=== PATIENT | female | born 1995 | race Caucasian/White ===

== ENCOUNTER 2018-03-23 12:14 | Emergency (ER) | payer BC ==
[2018-03-23 13:55] LABS: Absolute Lymphocytes (CBC) 1.3 K/uL (0.7-4.9); Absolute Monocytes 0.5 K/uL (0.1-1.3); Absolute Neutrophil 4.3 K/uL (1.8-8.0); Basophils % 0.1 % (0-1.3); Hematocrit 46.1 % (36.0-45.0); Lymphocytes % 20.8 % (15.3-44.8); MCH 29.6 pg (27.0-35.0); MCV 88.5 fL (80-100); MPV 8.2 fL (7.6-11.3); Monocytes % 7.3 % (3.3-12.3); RBC Red Blood Cell Count 5.21 M/uL (3.86-4.86)
[2018-03-23 14:03] LABS: Barbiturates NEGATIVE (NEGATIVE); Benzodiazepines NEGATIVE (NEGATIVE); Cocaine NEGATIVE (NEGATIVE); METHAMPHETAM NEGATIVE (NEGATIVE); Methadone NEGATIVE (NEGATIVE); Opiates NEGATIVE (NEGATIVE); Phencyclidine NEGATIVE (NEGATIVE); THC Cannibis NEGATIVE (NEGATIVE)
--- NOTE | 2018-03-23 14:07 | RAD REPORT ---
EXAM DESCRIPTION: RAD - Chest Pa And Lat (2 Views) - 03/23/2018 2:01 pm CLINICAL HISTORY: CHEST PAIN Chest pain. COMPARISON: Chest Pa And Lat (2 Views) dated 05/11/2016 FINDINGS: The lungs are clear. The heart is normal in size. No displaced fractures. IMPRESSION: No acute or concerning finding suspected.
[2018-03-23 14:19] LABS: BUN Blood Urea Nitrogen 12 mg/dL (7-18); Bicarbonate 29 mmol/L (21-32); Glucose Level 101 mg/dL (74-106); Potassium 3.8 mmol/L (3.5-5.1); Sodium Level 140 mmol/L (136-145)
[2018-03-23 14:39] LABS: Blood Morphology Comment NOT SEEN (NOT SEEN); Platelet Estimate ADEQ; Urine White Blood Cell Casts DIFF
--- NOTE | 2018-03-23 14:49 | ER ---
Nurse's Notes [facility] Name: Paula Alford Age: 22 yrs Sex: Female : 1995 Arrival Date: 03/23/2018 Time: 12:16 Bed 24 Private MD: Diagnosis: Tremor, unspecified Presentation: 03/23 13:05 Presenting complaint: Patient states: has had trembling/shakiness in her hands all iw week, was worse today, and then today has had pain across chest that feels sharp when she takes a deep breath or coughs, also has back pain. Transition of care: patient was not received from another setting of care. Onset of symptoms was March 17, 2018. Risk Assessment: Do you want to hurt yourself or someone else? Patient reports no desire to harm self or others. Initial Sepsis Screen: Does the patient meet any 2 criteria? No. Patient's initial sepsis screen is negative. Does the patient have a suspected source of infection? No. Patient's initial sepsis screen is negative. Care prior to arrival: None. 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 - Social history:: Smoking status: Patient uses tobacco products, smokes one-half pack cigarettes per day. - Ebola Screening: : Patient negative for fever greater than or equal to 101.5 degrees Fahrenheit, and additional compatible Ebola Virus Disease symptoms Patient denies exposure to infectious person Patient denies travel to an Ebola-affected area in the 21 days before illness onset No symptoms or risks identified at this time. Screenin:21 Abuse screen: Denies threats or abuse. Nutritional screening: No deficits noted. mb3 Tuberculosis screening: No symptoms or risk factors identified. Fall Risk None identified. Assessment: 14:40 General: Appears in no apparent distress. comfortable, Behavior is calm, cooperative, mb3 appropriate for age. Pain: Complains of pain in diaphragm. Neuro: Level of Consciousness is awake, alert, obeys commands, Oriented to person, place, time, situation, Appropriate for age Property Inspector are equal bilaterally Moves all extremities. Full function Gait is steady, Speech is normal, Reports shakiness, tremors to arms and hands. Cardiovascular: No deficits noted. Cardiovascular: Heart tones S1 S2 present Capillary refill < 3 seconds Patient's skin is warm and dry. Pulses are all present. Respiratory: No deficits noted. Respiratory: Airway is patent Respiratory effort is even, unlabored, Respiratory pattern is regular, symmetrical, Breath sounds are clear bilaterally. GI: No deficits noted. : No signs and/or symptoms were reported regarding the genitourinary system. EENT: No signs and/or symptoms were reported regarding the EENT system. Derm: No signs and/or symptoms reported regarding the dermatologic system. Musculoskeletal: No signs and/or symptoms reported regarding the musculoskeletal system. Vital Signs: 13:07 BP 148 / 109; Pulse 78; Resp 16; Temp 98.2; Pulse Ox 98% on R/A; Weight 106.59 kg; iw Height 5 ft. 8 in. (172.72 cm); Pain 6/10; 14:42 BP 139 / 94; Pulse 80; Resp 16; Pulse Ox 100% on R/A; mb3 13:07 Body Mass Index 35.73 (106.59 kg, 172.72 cm) iw ED Course: 12:16 Patient arrived in ED. as 12:59 Dakota Valdovinos, ROSALIND is Primary Nurse. mb3 13:01 Mae Lopez, [facility]C [facility]. snw 13:01 Leandro Kraft MD is Attending Physician. snw 13:07 Triage completed. iw 13:07 Arm band placed on. iw 13:29 EKG done, by imaging technician. reviewed by Mae FISH. at1 13:53 X-ray completed. Patient tolerated procedure well. Patient moved back from radiology. jb2 14:01 Chest Pa And Lat (2 Views) XRAY In Process Unspecified. EDMS 15:22 No provider procedures requiring assistance completed. Patient did not have IV access mb3 during this emergency room visit. 15:23 Patient has correct armband on for positive identification. mb3 Administered Medications: 15:08 Not Given (Duplicate Order): TORadol 30 mg IVP once mb3 15:08 Drug: TORadol 60 mg Route: IM; Site: right gluteus; mb3 15:21 Follow up: Response: No adverse reaction mb3 Outcome: 14:48 Discharge ordered by MD. alvarado 15:22 Discharged to home ambulatory. mb3 15:22 Condition: stable 15:22 Discharge instructions given to patient, Instructed on discharge instructions, follow up and referral plans. Demonstrated understanding of instructions, follow-up care. 15:23 Patient left the ED. mb3 Signatures: Dispatcher [employer] EDMS Mae Lopez, RETAIL MANAGEMENT KEYHOLDER-C RETAIL MANAGEMENT KEYHOLDER-Csnw Ruel Leslie Amelia as Williams, Irene, RN RN iw Makenzie cuevas, septic tank service technician EKG Tat1 Dakota Valdovinos, RN RN mb3
--- NOTE | 2018-03-23 14:49 | EDPHYS ---
Physician Documentation [facility] Name: Paula Alford Age: 22 yrs Sex: Female : 1995 Arrival Date: 03/23/2018 Time: 12:16 Bed 24 Private MD: ED Physician Leandro Kraft HPI: 03/23 13:46 This 22 yrs old Female presents to ER via Ambulatory with complaints of Rib snw Pain, Feels "shaky". 13:46 Onset: The symptoms/episode began/occurred suddenly, 1 week(s) ago. Associated signs snw and symptoms: The patient has no apparent associated signs or symptoms. It is unknown whether or not the patient has had similar symptoms in the past. It is unknown whether or not the patient has recently seen a physician. family hx of HTN, all pt's readings in ED elevated. No known hx of familial thyroid problems. 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 - Social history:: Smoking status: Patient uses tobacco products, smokes one-half pack cigarettes per day. - Ebola Screening: : Patient negative for fever greater than or equal to 101.5 degrees Fahrenheit, and additional compatible Ebola Virus Disease symptoms Patient denies exposure to infectious person Patient denies travel to an Ebola-affected area in the 21 days before illness onset No symptoms or risks identified at this time. ROS: 13:46 Constitutional: Negative for fever, chills, and weight loss, Eyes: Negative for injury, snw pain, redness, and discharge, ENT: Negative for injury, pain, and discharge, Neck: Negative for injury, pain, and swelling, Respiratory: Negative for shortness of breath, cough, wheezing, and pleuritic chest pain, Abdomen/GI: Negative for abdominal pain, nausea, vomiting, diarrhea, and constipation, Back: Negative for injury and pain, : Negative for injury, bleeding, discharge, and swelling, MS/Extremity: Negative for injury and deformity, + for shaking hands bilaterally Skin: Negative for injury, rash, and discoloration, Neuro: Negative for headache, weakness, numbness, tingling, and seizure. 13:46 Cardiovascular: Positive for chest pain. Exam: 13:44 Head/Face: Normocephalic, atraumatic. Eyes: Pupils equal round and reactive to light, snw extra-ocular motions intact. Lids and lashes normal. Conjunctiva and sclera are non-icteric and not injected. Cornea within normal limits. Periorbital areas with no swelling, redness, or edema. ENT: Nares patent. No nasal discharge, no septal abnormalities noted. Tympanic membranes are normal and external auditory canals are clear. Oropharynx with no redness, swelling, or masses, exudates, or evidence of obstruction, uvula midline. Mucous membranes moist. Neck: Trachea midline, no thyromegaly or masses palpated, and no cervical lymphadenopathy. Supple, full range of motion without nuchal rigidity, or vertebral point tenderness. No Meningismus. Chest/axilla: Normal chest wall appearance and motion. Nontender with no deformity. No lesions are appreciated. Cardiovascular: Regular rate and rhythm with a normal S1 and S2. No gallops, murmurs, or rubs. Normal PMI, no JVD. No pulse deficits. Respiratory: Lungs have equal breath sounds bilaterally, clear to auscultation and percussion. No rales, rhonchi or wheezes noted. No increased work of breathing, no retractions or nasal flaring. Abdomen/GI: Soft, non-tender, with normal bowel sounds. No distension or tympany. No guarding or rebound. No evidence of tenderness throughout. Back: No spinal tenderness. No costovertebral tenderness. Full range of motion. Skin: Warm, dry with normal turgor. Normal color with no rashes, no lesions, and no evidence of cellulitis. Neuro: Awake and alert, GCS 15, oriented to person, place, time, and situation. Cranial nerves II-XII grossly intact. Motor strength 5/5 in all extremities. Sensory grossly intact. Cerebellar exam normal. Normal gait. Psych: Awake, alert, with orientation to person, place and time. Behavior, mood, and affect are within normal limits. 13:44 Constitutional: The patient appears alert, awake, obese. 13:44 Musculoskeletal/extremity: Extremities: all appear grossly normal, with no appreciated pain with palpation, + fine tremor, ROM: no acute changes, Circulation is intact in all extremities. Sensation intact. Vital Signs: 13:07 BP 148 / 109; Pulse 78; Resp 16; Temp 98.2; Pulse Ox 98% on R/A; Weight 106.59 kg; iw Height 5 ft. 8 in. (172.72 cm); Pain 6/10; 14:42 BP 139 / 94; Pulse 80; Resp 16; Pulse Ox 100% on R/A; mb3 13:07 Body Mass Index 35.73 (106.59 kg, 172.72 cm) iw MDM: 13:11 Patient medically screened. swapna 14:50 Data reviewed: vital signs, nurses notes. Data interpreted: Pulse oximetry: on room air snw is 100 %. Interpretation: normal. Counseling: I had a detailed discussion with the patient and/or guardian regarding: the historical points, exam findings, and any diagnostic results supporting the discharge/admit diagnosis. Response to treatment: There is no appreciated change of the patient's symptoms at this time. 03/23 13:12 Order name: Urine Microscopic Only [facility] 03/23 13:13 Order name: UDS; Complete Time: 14:12 snw 03/23 13:21 Order name: CBC with Diff; Complete Time: 14:45 snw 03/23 13:21 Order name: Chem 7; Complete Time: 14:22 snw 03/23 13:21 Order name: TSH; Complete Time: 14:22 snw 03/23 13:58 Order name: Urine Dipstick--Ancillary (enter results) 03/23 13:12 Order name: Chest Pa And Lat (2 Views) XRAY; Complete Time: 14:12 snw 03/23 13:12 Order name: Urine Test (obtain specimen); Complete Time: 13:42 snw 03/23 13:13 Order name: EKG; Complete Time: 13:13 snw 03/23 13:58 Order name: Urine --Ancillary (enter results) 03/23 14:00 Order name: CBC Smear Scan EDNY 03/23 14:39 Order name: Manual Differential; Complete Time: 14:45 EDNY 03/23 13:12 Order name: Urine Dipstick-Ancillary (obtain specimen); Complete Time: 13:42 snw 03/23 13:13 Order name: EKG - Nurse/Tech; Complete Time: 14:53 snw Administered Medications: 15:08 Not Given (Duplicate Order): TORadol 30 mg IVP once mb3 15:08 Drug: TORadol 60 mg Route: IM; Site: right gluteus; mb3 15:21 Follow up: Response: No adverse reaction mb3 Disposition: 03/23/18 14:48 Discharged to Home. Impression: Tremor, unspecified. - Condition is Stable. - Discharge Instructions: Cooking with Less Salt, Hypertension, Tremor, Rehydration, Adult. - Work release form, Medication Reconciliation Form, Thank You Letter, Antibiotic Education, Prescription Opioid Use form. - Follow up: Private Physician; When: 2 - 3 days; Reason: Recheck today's complaints, Continuance of care, Re-evaluation by your physician. Follow up: Emergency Department; When: As needed; Reason: Worsening of condition. Addendum: 03/26/2018 10:08 Co-signature as Attending Physician, Leandro Kraft MD I agree with the assessment and c byrne plan of care. Signatures: Dispatcher [employer] EDNY Leandro Kraft MD MD cha Therrien, Shelly, VENEER JOINTER OPERATOR-C VENEER JOINTER OPERATOR-Csnw Neli Cross, RN RN Dakota Carey RN RN mb3 Corrections: (The following items were deleted from the chart) 03/23 15:23 14:48 03/23/2018 14:48 Discharged to Home. Impression: Tremor, unspecified. Condition mb3 is Stable. Forms are Medication Reconciliation Form, Thank You Letter, Antibiotic Education, Prescription Opioid Use. Follow up: Private Physician; When: 2 - 3 days; Reason: Recheck today's complaints, Continuance of care, Re-evaluation by your physician. Follow up: Emergency Department; When: As needed; Reason: Worsening of condition. snw
[2018-03-23] MEDS ORDERED: KETOROLAC 30 MG/ML INJ ONE ×2 (15:05→15:07)
[2018-03-23 15:19] LABS: Urine Bacteria <20 /HPF (<20); Urine Culture Reflex Order NOT NEEDED; Urine Mucus 1+ /HPF (NONE SEEN); Urine RBC <5 /HPF (NONE SEEN)
[2018-03-23 15:49] LABS: Urine Blood NEGATIVE (NEG); Urine Glucose NEGATIVE (NEG); Urine Protein NEGATIVE (NEG)
--- NOTE | 2018-03-23 18:08 | EKG ---
Test Date: 2018-03-23 Test Time: 13:24:02 Baker Helper: DEJUAN MEASUREMENT RESULTS: Intervals: Rate: 71 OK: 130 QRSD: 84 QT: 394 QTc: 428 [place]: P: 43 OK: 130 QRS: 32 T: 18 INTERPRETIVE STATEMENTS: Normal sinus rhythm with sinus arrhythmia Normal ECG Compared to ECG 05/11/2016 01:35:48 No significant changes Electronically Signed On 03-23-18 18:06:35 CDT by Ortiz Garcia
== END 2018-03-23 15:23 | disposition home or self-care (01) ==
LOC: ER 12:14
DX: R25.1 Tremor, unspecified (principal)
CPT/HCPCS: 36415; 71046; 80048; 80307; 81003; 81015; 81025; 84443; 85025; 93005; 96372; 99283

== ENCOUNTER 2021-05-05 10:25 | Emergency (ER) | payer BC ==
--- NOTE | 2021-05-05 11:16 | RAD REPORT ---
EXAM DESCRIPTION: Jovon Single View05/05/2021 11:10 am CLINICAL HISTORY: Cough COMPARISON: 2017 FINDINGS: The lungs appear clear of acute infiltrate. The heart is normal size IMPRESSION: No acute abnormalities displayed
--- NOTE | 2021-05-05 12:23 | ER ---
Nurse's Notes [facility] Name: Paula Alford Age: 25 yrs Sex: Female : 1995 Arrival Date: 05/05/2021 Time: 10:26 Bed Treatment Private MD: Diagnosis: Dyspnea Presentation: 05/05 10:30 Chief complaint: Patient states: started feeling bad 2 days ago, but shortness of tw2 breath started this morning. Coronavirus screen: cough unrelated to allergies, difficulty breathing, fever, shaking with chills, Client presents with at least one sign or symptom that may indicate coronavirus-19. Standard/surgical mask placed on the client. Provider contacted for isolation considerations. Ebola Screen: Patient denies travel to an Ebola-affected area in the 21 days before illness onset. Initial Sepsis Screen: Does the patient meet any 2 criteria? No. Patient's initial sepsis screen is negative. Does the patient have a suspected source of infection? No. Patient's initial sepsis screen is negative. Risk Assessment: Do you want to hurt yourself or someone else? Patient reports no desire to harm self or others. Note provider JAE Ortega in triage exam room at this time. Onset of symptoms was May 05, 2021. 10:30 Method Of Arrival: Wheelchair tw2 10:30 Acuity: SUZANNE 4 tw2 Triage Assessment: 10:32 General: Appears in no apparent distress. uncomfortable, obese, Behavior is agitated, tw2 fussy. Pain: Denies pain. Respiratory: Reports shortness of breath at rest cough that is dry, Onset: The symptoms/episode began/occurred this morning, the patient has moderate shortness of breath. Historical: - Allergies: 10:32 No Known Allergies; tw2 - PMHx: 10:32 Seasonal allergies; tw2 - PSHx: 10:32 None; tw2 - Immunization history:: Adult Immunizations Client reports having NOT received the Covid vaccine. - Social history:: Smoking status: Patient reports the use of cigarette tobacco products, smokes one-half pack cigarettes per day. Screenin:00 Abuse screen: Denies threats or abuse. Nutritional screening: No deficits noted. vg1 Tuberculosis screening: No symptoms or risk factors identified. Fall Risk None identified. Assessment: 10:58 General: Appears in no apparent distress. uncomfortable, Behavior is calm, cooperative. vg1 Pain: Complains of pain in throat Pain currently is 6 out of 10 on a pain scale. Pain began 1 day ago. Neuro: Level of Consciousness is awake, alert, obeys commands, Oriented to person, place, time, situation. Cardiovascular: Patient's skin is warm and dry. Respiratory: Reports cough that is productive, pain with cough Airway is patent Respiratory effort is even, unlabored, Breath sounds are clear bilaterally. GI: Reports diarrhea, nausea, vomiting. : No signs and/or symptoms were reported regarding the genitourinary system. EENT: Throat is reddened Reports sore throat. Derm: Skin is intact, is healthy with good turgor. Musculoskeletal: Circulation, motion, and sensation intact. 11:56 Reassessment: Patient appears in no apparent distress at this time. No changes from vg1 previously documented assessment. Patient and/or family updated on plan of care and expected duration. Pain level reassessed. Patient is alert, oriented x 3, equal unlabored respirations, skin warm/dry/pink. Vital Signs: 10:30 BP 124 / 99; Pulse 75; Resp 22; Temp 97.9; Pulse Ox 99% on R/A; tw2 11:00 BP 134 / 82; Pulse 70; Resp 20; Pulse Ox 100% ; vg1 11:56 BP 136 / 94; Pulse 73; Resp 20; Pulse Ox 100% ; vg1 ED Course: 10:26 Patient arrived in ED. as 10:30 Nessa Decker FNP-C [facility]. kb 10:30 Lg Aceves MD is Attending Physician. kb 10:32 Triage completed. tw2 10:32 Arm band placed on. tw2 10:42 Rupali Fermin, ROSALIND is Primary Nurse. vg1 11:00 Patient has correct armband on for positive identification. Bed in low position. Call vg1 light in reach. Side rails up X 1. 11:00 No provider procedures requiring assistance completed. vg1 11:10 Chest Single View XRAY In Process Unspecified. EDMS 12:55 Patient did not have IV access during this emergency room visit. ld1 Administered Medications: 12:21 Drug: Albuterol 2.5 mg Route: Inhalation; vg1 Outcome: 12:23 Discharge ordered by . kb 12:54 Discharged to home ambulatory. ld1 12:54 Condition: stable 12:54 Discharge instructions given to patient, Instructed on discharge instructions, follow up and referral plans. medication usage, Demonstrated understanding of instructions, follow-up care, medications, Prescriptions given X 1. 12:55 Patient left the ED. ld1 Signatures: Dispatcher [employer] EDMS Nessa Decker, ABE ROWE-Mary Ellen Angeles Tara, RN RN tw2 Rupali Fermin RN RN vg1 Sridevi Sandoval RN RN ld1
--- NOTE | 2021-05-05 12:23 | EDPHYS ---
Physician Documentation [facility] Name: Paula Alford Age: 25 yrs Sex: Female : 1995 Arrival Date: 05/05/2021 Time: 10:26 Bed Treatment Private MD: ED Physician Lg Aceves HPI: 05/05 16:30 This 25 yrs old Female presents to ER via Wheelchair with complaints of kb Shortness Of Breath - covid+. 16:30 The patient has shortness of breath at rest. Onset: The symptoms/episode began/occurred kb this morning. Duration: The symptoms are continuous. The patient's shortness of breath has no apparent modifying factors. Associated signs and symptoms: The patient has no apparent associated signs or symptoms. Severity of symptoms: At their worst the symptoms were mild moderate in the emergency department the symptoms are unchanged. The patient has not experienced similar symptoms in the past. The patient has not recently seen a physician. Pt reports shortness of breath that started today. Reports everyone in her house has covid, but she hasn't been tested so she came to see if she had it.. Historical: - Allergies: 10:32 No Known Allergies; tw2 - PMHx: 10:32 Seasonal allergies; tw2 - PSHx: 10:32 None; tw2 - Immunization history:: Adult Immunizations Client reports having NOT received the Covid vaccine. - Social history:: Smoking status: Patient reports the use of cigarette tobacco products, smokes one-half pack cigarettes per day. ROS: 16:02 Constitutional: Negative for fever, chills, and weight loss. kb 16:02 Respiratory: Positive for shortness of breath, Negative for cough, dyspnea on exertion, hemoptysis, orthopnea, pleurisy, sputum production, wheezing. 16:02 All other systems are negative. Exam: 16:02 Constitutional: This is a well developed, well nourished patient who is awake, alert, kb and in no acute distress. Head/Face: Normocephalic, atraumatic. ENT: Moist Mucous membranes Cardiovascular: Regular rate and rhythm with a normal S1 and S2. No gallops, murmurs, or rubs. No pulse deficits. Respiratory: Respirations even and unlabored. No increased work of breathing, no retractions or nasal flaring. Skin: Warm, dry with normal turgor. Normal color. MS/ Extremity: Pulses equal, no cyanosis. Neurovascular intact. Full, normal range of motion. Neuro: Awake and alert, GCS 15, oriented to person, place, time, and situation. Moves all extremities. Normal gait. Psych: Awake, alert, with orientation to person, place and time. Behavior, mood, and affect are within normal limits. 16:02 Respiratory: mild respiratory distress is noted, Respirations: labored breathing, Breath sounds: are clear throughout. Vital Signs: 10:30 BP 124 / 99; Pulse 75; Resp 22; Temp 97.9; Pulse Ox 99% on R/A; tw2 11:00 BP 134 / 82; Pulse 70; Resp 20; Pulse Ox 100% ; vg1 11:56 BP 136 / 94; Pulse 73; Resp 20; Pulse Ox 100% ; vg1 MDM: 10:30 Patient medically screened. kb 16:03 Data reviewed: vital signs, nurses notes. Data interpreted: Pulse oximetry: on room air kb is 100 %. Interpretation: normal. Counseling: I had a detailed discussion with the patient and/or guardian regarding: the historical points, exam findings, and any diagnostic results supporting the discharge/admit diagnosis, lab results, radiology results, the need for outpatient follow up, a family practitioner, to return to the emergency department if symptoms worsen or persist or if there are any questions or concerns that arise at home. 16:03 ED course: After discussing results with pt, she informed me that she had this same kb exact symptoms a couple of years ago and was given an inhaler that helped. . 05/05 12:04 Order name: SARS-COV-2 RT PCR; Complete Time: 12:04 EDMS 05/05 10:34 Order name: Chest Single View XRAY; Complete Time: 11:21 kb Administered Medications: 12:21 Drug: Albuterol 2.5 mg Route: Inhalation; vg1 Disposition Summary: 05/05/21 12:23 Discharge Ordered Location: Home kb Condition: Stable kb Diagnosis - Dyspnea kb Followup: kb - With: Emergency Department - When: As needed - Reason: Worsening of condition Followup: kb - With: Private Physician - When: 2 - 3 days - Reason: Recheck today's complaints, Continuance of care, Re-evaluation by your physician Discharge Instructions: - Discharge Summary Sheet kb - Shortness of Breath, Adult, [id number] kb Forms: - Medication Reconciliation Form kb - Thank You Letter kb - Antibiotic Education kb - Prescription Opioid Use kb Prescriptions: - albuterol sulfate 90 mcg/actuation Inhalation HFA aerosol inhaler - inhale 2 puff by INHALATION route every 4-6 hours As needed; 1 Inhaler; kb Refills: 0, Product Selection Permitted Addendum: 05/08/2021 20:15 Co-signature as Attending Physician, Lg Aceves MD I agree with the assessment and s p3 plan of care. Signatures: Dispatcher [employer] EDMT Nessa Decker, CONSTRUCTION ACCOUNTANT-C CONSTRUCTION ACCOUNTANT-Jocelyn Tate RN RN tw2 Rupali Fermin RN RN vg1 Lg Aceves MD MD sp3 Corrections: (The following items were deleted from the chart) 05/05 11:02 10:35 CORONAVIRUS+MR.LAB.BRZ ordered. [facility]
[2021-05-05] MEDS ORDERED: ALBUTEROL 2.5 MG/3 ML NEB SOL ONE (12:41)
[2021-05-05 13:00] VITALS: TEMP 97.9
[2021-05-05 13:02] VITALS: O2SAT 100
[2021-05-05 13:03] VITALS: BP 136/94
== END 2021-05-05 12:55 | disposition home or self-care (01) ==
LOC: ER 10:25
DX: R06.00 Dyspnea, unspecified (principal); Z20.822 Contact with and (suspected) exposure to COVID-19; F17.210 Nicotine dependence, cigarettes, uncomplicated; F17.220 Nicotine dependence, chewing tobacco, uncomplicated
CPT/HCPCS: 71045; 99284; U0003